=== PATIENT | male | born 2000 | race Caucasian/White ===

== ENCOUNTER 2022-08-01 13:50 | Emergency (ER) | payer OTHER ==
--- NOTE | 2022-08-01 14:36 | RAD REPORT ---
EXAM DESCRIPTION: CT - Abdomen Pelvis Wo Contrast - 08/01/2022 2:07 pm CLINICAL HISTORY: Abdominal pain /left flank pain COMPARISON: None TECHNIQUE: Computed axial tomography of the abdomen and pelvis was obtained. IV and oral contrast we re not requested. All CT scans are performed using dose optimization technique as appropriate and may include automated exposure control or mA/KV adjustment according to patient size. FINDINGS: The evaluation of solid organs, vessels and bowel is limited secondary to the lack of con trast administration. The liver, spleen, pancreas, adrenals and kidneys appear grossly normal. The appendix is normal. There is no evidence of diverticulitis. IMPRESSION: No acute abnormality is displayed.
[2022-08-01 16:26] LABS: Hematocrit 45.5 % (39.6-49.0); Lymphocytes % 26.4 % (15.3-44.8); MPV 7.6 fL (7.6-11.3); RBC Red Blood Cell Count 5.23 M/uL (4.33-5.43)
[2022-08-01 16:27] LABS: Absolute Lymphocytes (CBC) 2.7 K/uL (0.7-4.9)
[2022-08-01 16:44] LABS: Bilirubin Total 0.7 mg/dL (0.2-1.0); Potassium 4.1 mEq/L (3.5-5.1); Protein, Total 7.6 g/dL (6.4-8.2)
[2022-08-01 16:47] LABS: Specific Gravity 1.015 (1.005-1.030); Urine Bilirubin NEGATIVE (Negative); Urine Blood Negative (Negative); Urine Clarity Clear (Clear); Urine Color Light-Yellow (Yellow); Urine Glucose NEGATIVE (Negative); Urine Protein NEGATIVE (Negative); Urine Urobilinogen Normal (Normal); Urine pH 6.5 (5.0-7.0)
--- NOTE | 2022-08-01 16:50 | ER ---
Nurse's Notes [facility] Name: Dayton Aranda Age: 22 yrs Sex: Male : 2000 Arrival Date: 08/01/2022 Time: 13:51 Bed 12 Private MD: Diagnosis: Upper abdominal pain, unspecified Presentation: 08/01 14:31 Chief complaint: Patient states: left flank pain radiating to left lateral aspect of aa5 abdomen that began today. Pt reports nausea. Denies vomiting/diarrhea. Coronavirus screen: nausea. Ebola Screen: Patient denies travel to an Ebola-affected area in the 21 days before illness onset. Initial Sepsis Screen: Does the patient meet any 2 criteria? No. Patient's initial sepsis screen is negative. Does the patient have a suspected source of infection? No. Patient's initial sepsis screen is negative. Risk Assessment: Do you want to hurt yourself or someone else? Patient reports no desire to harm self or others. Onset of symptoms was August 01, 2022. 14:31 Method Of Arrival: Ambulatory aa5 14:31 Acuity: BRET 3 aa5 Triage Assessment: 16:00 General: Appears in no apparent distress. Behavior is calm, cooperative. iw Historical: - Allergies: 14:32 No Known Allergies; aa5 - PMHx: 14:32 None; aa5 - PSHx: 14:32 Tonsillectomy; aa5 - Immunization history:: Adult Immunizations unknown. - Social history:: Smoking status: Patient reports the use of cigarette tobacco products, smokes one pack cigarettes per day. Screenin:00 [facility] ED Fall Risk Assessment (Adult) History of falling in the last 3 months, iw including since admission No falls in past 3 months (0 pts). Abuse screen: Denies threats or abuse. Denies injuries from another. Nutritional screening: No deficits noted. Tuberculosis screening: No symptoms or risk factors identified. Assessment: 16:00 General: Appears in no apparent distress. Behavior is calm, cooperative. Pain: iw Complains of pain in abdomen. Neuro: Level of Consciousness is awake, alert, obeys commands, Oriented to person, place, time, situation, Moves all extremities. Full function. Cardiovascular: Patient's skin is warm and dry. Respiratory: Respiratory effort is even, unlabored, Respiratory pattern is regular, symmetrical. GI: Bowel sounds present X 4 quads. Abd is soft X 4 quads. Derm: Skin is intact, is healthy with good turgor. Musculoskeletal: Range of motion: intact in all extremities. Vital Signs: 14:31 BP 142 / 88; Pulse 82; Resp 18 S; Temp 98(TE); Pulse Ox 100% on R/A; Weight 149.69 kg aa5 (R); Height 6 ft. 4 in. (R); 14:31 Body Mass Index 40.17 (149.69 kg, 193.04 cm) aa5 ED Course: 13:51 Patient arrived in ED. rg4 13:53 David Monahan MD is Attending Physician. bs3 14:08 CT Abd/Pelvis - Without Contrast In Process Unspecified. EDMS 14:31 Arm band placed on. aa5 14:32 Triage completed. aa5 16:20 Inserted saline lock: 20 gauge in left antecubital area, using aseptic technique. Blood zm collected. 16:20 CBC with Diff Sent. zm 16:20 CMP Sent. zm 16:20 Lipase Sent. zm 17:00 Patient has correct armband on for positive identification. iw 17:07 No provider procedures requiring assistance completed. IV discontinued, intact, iw bleeding controlled, No redness/swelling at site. Pressure dressing applied. 17:09 Mari Thao, RN is Primary Nurse. iw Administered Medications: No medications were administered Medication: 16:00 VIS not applicable for this client. iw Outcome: 16:49 Discharge ordered by . bs3 17:08 Discharged to home ambulatory. iw 17:08 Condition: good 17:08 Discharge instructions given to patient, Instructed on discharge instructions, follow up and referral plans. Demonstrated understanding of instructions, follow-up care. 17:09 Patient left the ED. iw Signatures: Dispatcher [employer] EDMS Mari Thao RN RN iw Yue Hernandez RN RN aa5 Alma Delia Pena Ashlee Barnhart Brandon, MD MD bs3 Corrections: (The following items were deleted from the chart) 14:32 14:32 PSHx: None; aa5 aa5
--- NOTE | 2022-08-01 16:50 | EDPHYS ---
Physician Documentation [facility] Name: Dayton Aranda Age: 22 yrs Sex: Male : 2000 Arrival Date: 08/01/2022 Time: 13:51 Bed 12 Private MD: ED Physician David Monahan HPI: 08/01 13:59 This 22 yrs old Male presents to ER via Ambulatory with complaints of bs3 Abdominal Pain. 13:59 The patient presents with abdominal pain in the left upper quadrant. Onset: The bs3 symptoms/episode began/occurred today. The symptoms do not radiate. Associated signs and symptoms: none. The symptoms are described as achy, sharp. 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 Severity of pain: At its worst the pain was moderate in the emergency department the pain has improved. 22-year-old male presents with left abdominal pain started this morning feels like it is achy without chest pain or shortness of breath he noted associated nausea no difficulty breathing no vomiting or diarrhea he is never had pain like this before he notes that currently it is better but earlier it was more intense and caused him to leave work denies any numbness tingling or weakness in his extremities denies any back pain is not a ripping or tearing pain but more of a pressure-like pain. Historical: - Allergies: 14:32 No Known Allergies; aa5 - PMHx: 14:32 None; aa5 - PSHx: 14:32 Tonsillectomy; aa5 - Immunization history:: Adult Immunizations unknown. - Social history:: Smoking status: Patient reports the use of cigarette tobacco products, smokes one pack cigarettes per day. ROS: 13:59 Constitutional: Negative for fever, chills bs3 13:59 All other systems are negative. Exam: 13:59 Constitutional: This is a well developed, well nourished patient who is awake, alert, bs3 and in no acute distress. Head/Face: Normocephalic, atraumatic. Eyes: Pupils equal round and reactive to light, extra-ocular motions intact. Lids and lashes normal. ENT: mmm, no posterior phyarngeal erythema Chest/axilla: Normal chest wall appearance and motion. Nontender with no deformity. No lesions are appreciated. Cardiovascular: Regular rate and rhythm with a normal S1 and S2. symmetric pulses in upper extremities Respiratory: Lungs have equal breath sounds bilaterally, clear to auscultation, no respiratory distress Abdomen/GI: Soft, non-tender, no rebound or guarding, left CVA tenderness Skin: Warm, dry with normal turgor. Normal color with no rashes, no lesions, and no evidence of cellulitis. MS/ Extremity: Pulses equal, no cyanosis. Neurovascular intact. Full, normal range of motion. Neuro: Awake and alert, GCS 15, oriented to person, place, time, and situation. Cranial nerves II-XII grossly intact. Motor strength 5/5 in all extremities. Sensory grossly intact. Psych: Awake, alert, with orientation to person, place and time. Behavior, mood, and affect are within normal limits. Vital Signs: 14:31 BP 142 / 88; Pulse 82; Resp 18 S; Temp 98(TE); Pulse Ox 100% on R/A; Weight 149.69 kg aa5 (R); Height 6 ft. 4 in. (R); 14:31 Body Mass Index 40.17 (149.69 kg, 193.04 cm) aa5 MDM: 13:53 Patient medically screened. bs3 13:59 Differential diagnosis: bowel obstruction, gastritis, gastroesophageal reflux disease, bs3 Ureterolithiasis, Considered dissection but normal symmetric pulses no risk factors besides smoking he is well-appearing here. Data reviewed: vital signs, nurses notes. 15:17 ED course: CT negative for acute pathology patient slightly hypertensive but no neuro bs3 symptoms gallbladder negative for acute pathology on CT as interpreted by myself aorta is limited secondary to lack of contrast but normal in size. 16:37 ED course: Patient feeling better no current pain. bs3 16:47 ED course: labs neg for acute pathology, pending ua, pt stable for outpatient bs3 management, return prec given. 16:49 ED course: UA negative patient remained pain-free here advised to follow-up with bs3 primary care for elevated blood pressure return precautions given. 08/01 13:58 Order name: CBC with Diff; Complete Time: 16:37 bs3 08/01 13:58 Order name: CMP; Complete Time: 16:46 bs3 08/01 13:58 Order name: Lipase; Complete Time: 16:46 bs3 08/01 13:58 Order name: UA; Complete Time: 16:49 bs3 08/01 13:58 Order name: CT Abd/Pelvis - Without Contrast; Complete Time: 15:15 bs3 08/01 13:58 Order name: IV Saline Lock; Complete Time: 16:20 bs3 08/01 13:58 Order name: Labs collected and sent; Complete Time: 16:20 bs3 Administered Medications: No medications were administered Disposition Summary: 08/01/22 16:49 Discharge Ordered Location: Home bs3 Problem: new bs3 Symptoms: are resolved bs3 Condition: Stable bs3 Diagnosis - Upper abdominal pain, unspecified bs3 Followup: bs3 - With: Private Physician - When: 2 - 3 days - Reason: Re-evaluation by your physician Discharge Instructions: - Discharge Summary Sheet bs3 - Pain Without a Known Cause bs3 - Abdominal Pain, Adult, [id number] bs3 Forms: - Work release form bs3 - Medication Reconciliation Form bs3 - Thank You Letter bs3 - Antibiotic Education bs3 - Prescription Opioid Use bs3 Signatures: Dispatcher [employer] Yue Granger RN RN aa5 David Monahan MD MD bs3 Corrections: (The following items were deleted from the chart) 14:32 14:32 PSHx: None; [email or web address] aa5
== END 2022-08-01 17:09 | disposition home or self-care (01) ==
LOC: ER 13:50
DX: R10.12 Left upper quadrant pain (principal); F17.210 Nicotine dependence, cigarettes, uncomplicated
CPT/HCPCS: 36415; 74176; 80053; 81003; 83690; 85025